=== PATIENT | male | born 1995 | race Caucasian/White ===

== ENCOUNTER 2018-01-07 00:43 | Emergency (ER) | payer BC ==
[~2018-01-07] VITALS: Ht 177.8 cm; Wt 72.6 kg
[~2018-01-07 00:43] MED LIST: NOHOMEMEDICATIONS
[2018-01-07] MEDS ORDERED: KEFLEX500 M1 PO (02:52)
[2018-01-07 03:08] VITALS: BP 113/53
== END 2018-01-07 03:11 | disposition home or self-care (01) ==
LOC: M.ERS 00:43
DX: S91.312A Laceration without foreign body, left foot, initial encounter (principal); W23.0XXA Caught, crushed, jammed, or pinched between moving objects, initial encounter; Y93.89 Activity, other specified; Y92.89 Other specified places as the place of occurrence of the external cause; Y99.8 Other external cause status

== ENCOUNTER 2018-10-15 19:01 | Emergency (ER) | payer BC ==
[~2018-10-15] VITALS: Ht 177.8 cm; Wt 72.6 kg
[~2018-10-15 19:01] MED LIST changes: +KEFLEX500 M1 PO
[2018-10-15 19:20] LABS: URINE BILIRUBIN NEGATIVE (Negative); URINE BLOOD TRACE (Negative); URINE CLARITY CLEAR; URINE COLOR YELLOW; URINE GLUCOSE-RANDOM NEGATIVE (Negative); URINE KETONES TRACE (Negative); URINE LEUKOCYTES-REFLEX NEGATIVE (Negative); URINE NITRITE-REFLEX NEGATIVE (Negative); URINE PROTEIN NEGATIVE (Negative); URINE SPECIFIC GRAVITY 1.025 (1.005-1.030); URINE UROBILINOGEN 0.2 E.U./dl (0.2-1.0)
[2018-10-15 20:02] LABS: ABSOLUTE LYMPHOCYTES 1.4 thou/uL (0.8-5.3); ABSOLUTE MONOCYTES 0.8 thou/uL (0.0-1.2); ABSOLUTE NEUTROPHILS 7.8 thou/uL (1.6-8.1); BASOPHILS 0.2 %; EOSINOPHILS 0.1 %; HEMOGLOBIN 16.9 gm/dL (14.0-18.0); LYMPHOCYTES 13.9 %; MCHC 35.3 g/dL (28.0-37.0); MCV 90.6 fL (80.0-100.0); MONOCYTES 7.7 %; MPV 6.6 fl. (7.2-11.1); NUCLEATED RBCS 0 /100WBC; PLATELET COUNT* 228 thou/uL (150-400); POLYS 78.1 %; RDW-CV 13.4 % (10.5-14.5); WBC 9.9 thou/uL (4.0-11.0)
[2018-10-15 20:10] LABS: CALCIUM 9.5 mg/dL (8.5-10.1); CREATININE 1.1 mg/dL (0.6-1.3); POTASSIUM 3.7 mmol/L (3.5-5.1)
[2018-10-15 20:11] LABS: APTT 29.8 Seconds (25.0-31.3); PROTIME 10.7 Seconds (9.20-11.50)
[2018-10-15 20:15] LABS: ALBUMIN 4.6 g/dL (3.4-5.0); TOTAL BILIRUBIN 0.8 mg/dL (<0.1-1.0); TOTAL PROTEIN 7.7 g/dL (6.4-8.2)
[2018-10-15] MEDS ORDERED: ZOFRAN ODT4 MG PO (21:25)
[2018-10-15] MEDS ORDERED: CIPROFLOXACIN500 M1 PO (21:25)
[2018-10-15] MEDS ORDERED: FLAGYL500 M1 PO (21:25)
[2018-10-15] MEDS ORDERED: LEVSIN0.125 MG PO (21:25)
[2018-10-15 21:43] VITALS: BP 108/56
== END 2018-10-15 21:45 | disposition home or self-care (01) ==
LOC: M.ERS 19:01
PROVIDERS: Nurse Practitioner Family
DX: K52.9 Noninfective gastroenteritis and colitis, unspecified (principal)

== ENCOUNTER 2020-05-07 19:57 | Emergency (ER) | payer BC ==
[~2020-05-07] VITALS: Ht 177.8 cm; Wt 74.8 kg
[~2020-05-07 19:57] MED LIST changes: +CIPROFLOXACIN500 M1 PO; +FLAGYL500 M1 PO; +LEVSIN0.125 MG PO; +ZOFRAN ODT4 MG PO
[2020-05-07 22:43] LABS: ABSOLUTE BASOPHILS 0.1 thou/uL (0.0-0.2); ABSOLUTE LYMPHOCYTES 2.1 thou/uL (0.8-5.3); ABSOLUTE MONOCYTES 0.9 thou/uL (0.0-1.2); ABSOLUTE NEUTROPHILS 7.3 thou/uL (1.6-8.1); BASOPHILS 0.5 %; EOSINOPHILS 0.3 %; HEMATOCRIT 47.2 % (42.0-52.0); HEMOGLOBIN 16.3 gm/dL (14.0-18.0); LYMPHOCYTES 20.3 %; MCH 32.2 pg (26.0-34.0); MCHC 34.5 g/dL (28.0-37.0); MCV 93.3 fL (80.0-100.0); MONOCYTES 8.4 %; MPV 6.6 fl. (7.2-11.1); NUCLEATED RBCS 0 /100WBC; PLATELET COUNT* 234 thou/uL (150-400); POLYS 70.5 %; RBC 5.06 mil/uL (4.50-6.00); RDW-CV 12.7 % (10.5-14.5); WBC 10.4 thou/uL (4.0-11.0)
[2020-05-07 22:52] LABS: PROTIME 10.4 Seconds (9.20-11.50)
[2020-05-07 22:55] LABS: CALCIUM 8.9 mg/dL (8.5-10.1); CREATININE 1.3 mg/dL (0.6-1.3); POTASSIUM 3.9 mmol/L (3.5-5.1)
[2020-05-07 22:56] LABS: ALBUMIN 4.3 g/dL (3.4-5.0); TOTAL BILIRUBIN 0.6 mg/dL (<0.1-1.0); TOTAL PROTEIN 7.4 g/dL (6.4-8.2)
[2020-05-08 00:02] VITALS: BP 116/62
== END 2020-05-08 00:03 | disposition short-term general hospital (02) ==
LOC: M.ERS 19:57
PROVIDERS: Emergency Medicine
DX: S12.690A Other displaced fracture of seventh cervical vertebra, initial encounter for closed fracture (principal); Z20.828 Contact with and (suspected) exposure to other viral communicable diseases; X58.XXXA Exposure to other specified factors, initial encounter; Y93.89 Activity, other specified; Y92.89 Other specified places as the place of occurrence of the external cause; Y99.8 Other external cause status